=== PATIENT | male | born 1955 | race Caucasian/White ===

== ENCOUNTER 2021-04-25 06:55 | Inpatient (IN) ==
--- NOTE | 2021-04-09 16:27 | PAT Medication Instructions ---
Medication Instructions Date of Service April 09, 2021 Home Medications albuterol sulfate 90 mcg/actuation aerosol inhaler 1 - 2 inh INHALATION QID PRN amitriptyline 25 mg tablet 25 mg PO BID ascorbic acid (vitamin C) 500 mg tablet (Vitamin C) 500 mg PO BID budesonide-formoterol HFA 160 mcg-4.5 mcg/actuation aerosol inhaler (Symbicort) 2 puff INHALATION BID cholecalciferol (vitamin D3) 50 mcg (2,000 unit) tablet (Vitamin D3) 50 mcg PO QAM clopidogrel 75 mg tablet (Plavix) 75 mg PO QAM cyanocobalamin (vitamin B-12) 1,000 mcg tablet 1,000 mcg PO QAM empagliflozin 25 mg tablet (Jardiance) 25 mg PO QAM epinephrine 0.3 mg/0.3 mL injection, auto-injector 0.3 mg IM Q3H PRN esomeprazole magnesium 20 mg capsule,delayed release (Nexium) 20 mg PO BID ferrous sulfate 325 mg (65 mg iron) tablet (iron) 325 mg PO BID fluticasone propionate 50 mcg/actuation nasal spray,suspension (Flonase Allergy Relief) 2 spray INTRANASAL UD folic acid 400 mcg tablet 0.4 mg PO QAM furosemide 40 mg tablet (Lasix) 40 mg PO BID PRN lactase 3,000 unit chewable tablet (Dairy Aid) 3,000 unit PO UD loratadine 10 mg tablet 10 mg PO QAM melatonin 5 mg tablet 5 mg PO HS [id number]-niygg-thqkve-vdffqfi-zexj-nau chlor-pot chlorat nasal solution (Alkalol Nasal Wash) 1 ml INTRANASAL HS multivitamin 1 tab PO QAM nitroglycerin 0.4 mg sublingual tablet 0.4 mg BUCCAL UD PRN roflumilast 500 mcg tablet (Daliresp) 500 mcg PO QAM rosuvastatin 40 mg tablet 40 mg PO HS semaglutide (Ozempic) 1 mg SUBCUT WK sertraline 100 mg tablet 150 mg PO QAM tiotropium bromide 18 mcg capsule with inhalation device (Spiriva with HandiHaler) 1 cap INHALATION QPM triamcinolone acetonide 0.1 % topical cream 1 applic TOPICAL BID PRN Albuteral Nebulizer 1 inh INHALATION DAILY PRN Pyridoxine Otc 1 tab PO QAM acetaminophen 325 mg tablet (Tylenol) 975 mg PO QID PRN aspirin 81 mg tablet,delayed release 81 mg PO QAM carvedilol 3.125 mg tablet 3.125 mg PO BID clotrimazole 1 % topical cream 1 applic TOPICAL BID miconazole nitrate 2 % topical cream 1 applic TOPICAL BID Continue as directed epinephrine 0.3 mg/0.3 mL injection, auto-injector 0.3 mg IM Q3H PRN (if needed) fluticasone propionate 50 mcg/actuation nasal spray,suspension (Flonase Allergy Relief) 2 spray INTRANASAL UD nitroglycerin 0.4 mg sublingual tablet 0.4 mg BUCCAL UD PRN (if needed) semaglutide (Ozempic) 1 mg SUBCUT WK (just do not take on morning of surgery) ASK your prescriber and surgeon clopidogrel 75 mg tablet (Plavix) 75 mg PO QAM STOP taking 24 hours before surgery triamcinolone acetonide 0.1 % topical cream 1 applic TOPICAL BID PRN clotrimazole 1 % topical cream 1 applic TOPICAL BID miconazole nitrate 2 % topical cream 1 applic TOPICAL BID DO NOT take the morning of surgery ascorbic acid (vitamin C) 500 mg tablet (Vitamin C) 500 mg PO BID cholecalciferol (vitamin D3) 50 mcg (2,000 unit) tablet (Vitamin D3) 50 mcg PO QAM cyanocobalamin (vitamin B-12) 1,000 mcg tablet 1,000 mcg PO QAM empagliflozin 25 mg tablet (Jardiance) 25 mg PO QAM ferrous sulfate 325 mg (65 mg iron) tablet (iron) 325 mg PO BID folic acid 400 mcg tablet 0.4 mg PO QAM furosemide 40 mg tablet (Lasix) 40 mg PO BID PRN lactase 3,000 unit chewable tablet (Dairy Aid) 3,000 unit PO UD loratadine 10 mg tablet 10 mg PO QAM multivitamin 1 tab PO QAM Pyridoxine Otc 1 tab PO QAM Take morning of surgery With a small sip of water, OTHERWISE NOTHING TO EAT OR DRINK AFTER MIDNIGHT: albuterol sulfate 90 mcg/actuation aerosol inhaler 1 - 2 inh INHALATION QID PRN (use if needed; please bring with you to hospital day of surgery if possible) amitriptyline 25 mg tablet 25 mg PO BID budesonide-formoterol HFA 160 mcg-4.5 mcg/actuation aerosol inhaler (Symbicort) 2 puff INHALATION BID esomeprazole magnesium 20 mg capsule,delayed release (Nexium) 20 mg PO BID roflumilast 500 mcg tablet (Daliresp) 500 mcg PO QAM sertraline 100 mg tablet 150 mg PO QAM Albuteral Nebulizer 1 inh INHALATION DAILY PRN (if needed) acetaminophen 325 mg tablet (Tylenol) 975 mg PO QID PRN (okay to take up to 4 hours prior to surgery if needed) aspirin 81 mg tablet,delayed release 81 mg PO QAM carvedilol 3.125 mg tablet 3.125 mg PO BID Take evening before surgery albuterol sulfate 90 mcg/actuation aerosol inhaler 1 - 2 inh INHALATION QID PRN (if needed) amitriptyline 25 mg tablet 25 mg PO BID ascorbic acid (vitamin C) 500 mg tablet (Vitamin C) 500 mg PO BID budesonide-formoterol HFA 160 mcg-4.5 mcg/actuation aerosol inhaler (Symbicort) 2 puff INHALATION BID esomeprazole magnesium 20 mg capsule,delayed release (Nexium) 20 mg PO BID ferrous sulfate 325 mg (65 mg iron) tablet (iron) 325 mg PO BID furosemide 40 mg tablet (Lasix) 40 mg PO BID PRN (if needed) lactase 3,000 unit chewable tablet (Dairy Aid) 3,000 unit PO UD (if needed) melatonin 5 mg tablet 5 mg PO HS xidiato-eqhgr-kooonh-obyifwu-vhgv-cep chlor-pot chlorat nasal solution (Alkalol Nasal Wash) 1 ml INTRANASAL HS rosuvastatin 40 mg tablet 40 mg PO HS tiotropium bromide 18 mcg capsule with inhalation device (Spiriva with HandiHaler) 1 cap INHALATION QPM Albuteral Nebulizer 1 inh INHALATION DAILY PRN (if needed) acetaminophen 325 mg tablet (Tylenol) 975 mg PO QID PRN (if needed) carvedilol 3.125 mg tablet 3.125 mg PO BID Other Notes If you have any questions please call us at [phone] or [phone] or [phone] or [phone]
--- NOTE | 2021-04-12 14:12 | Anesthesiology Consultation ---
Date of Service April 12, 2021 Assessment & Plan (1) Encounter for pre-operative examination: Chart Review Chart Review: Acceptable Risk for Surgery (pending surgeon ordered PCP/cardio clearance, any available carotid, ECHO and or chest CTA studies, and preop Covid testing ) and Patient seen in Pre Admission Testing - Awaiting surgeon ordered PCP (04/16) and cardio (04/13) clearances - Will attempt to get most recent carotid study and ECHO and/or chest CTA Per [facility] appt on 04/12/21, patient denies any recent travel. Wears mask when required by CDC guidelines. Usually avoids stores. No known Covid infection in the past 90 days. Patient vaccinated for Covid. No known Covid positive contacts or Covid related symptoms. Preop Covid testing scheduled 04/23/21= will await results. Educated on importance of self quarantining, social distancing and wearing mask in public both for the patient after Covid testing done Teaching & Discussion Pre-Anesthesia Teaching/Discussion Notes: Instructed NPO after midnight before surgery,except medications with 15 cc of water. Medication instructions provided according to the [facility] guidelines. History Surgery Operation Date: 04/25/21 08:45 Proposed Procedures p Left Total Shoulder Arthroplasty, Capsular Release, Biceps Tenodesis, Manipulation Shoulder Under Anesthesia - Vito Washington MD Height/Weight Height: 5 ft 11 in Weight: 76.204 kg Allergies Allergy/AdvReac Type Severity Reaction Status Date / Time codeine Allergy Intermediate HALLUCINATE Verified 03/29/21 14:34 S glipizide Allergy Intermediate "DROPS BSG Verified 03/29/21 14:34 TOO LOW" pseudoephedrine Allergy Intermediate HEART RACES Verified 03/29/21 14:34 quinapril Allergy Intermediate DIZZINESS Verified 03/29/21 14:34 AND HEADACHES amoxicillin Allergy Mild N/V/D, Verified 03/29/21 14:34 HEADACHES, FEVER, TIREDNESS atorvastatin Allergy Mild LEG CRAMPS Verified 03/29/21 14:34 celecoxib Allergy Mild NAUSEA AND Verified 03/29/21 14:34 DIARRHEA clavulanic acid Allergy Mild N/V/D, Verified 03/29/21 14:34 HEADACHES, FEVER, TIREDNESS grape Allergy Mild ALLERGY Verified 03/29/21 14:34 TESTED guaifenesin Allergy Mild HEART RACES Verified 03/29/21 14:34 indomethacin Allergy Mild DIARRHEA Verified 03/29/21 14:34 AND TROUBLE SLEEPING niacin Allergy Mild CRAMPS, Verified 03/29/21 14:34 ITCHING TINGLING OF FACE AND NECK ramipril Allergy Mild LOW BLOOD Verified 03/29/21 14:34 PRESSURE AND DIFFICULT BREATHING metformin AdvReac Unknown NOT TO USE Verified 03/29/21 14:34 WITH OXYGEN-PER BINGO CASHIER tramadol AdvReac SEATING, Verified 03/29/21 14:34 AGITIATION, INSOMNIA, CONSTIPtion, jittery unsteady Ethanol Allergy Intermediate HEART RACES Uncoded 03/29/21 14:34 PROPULFID Allergy Intermediate STOMACH Uncoded 03/29/21 14:34 PAIN AND WEAKNESS COWS MILK Allergy Unknown ALLERGY Uncoded 03/29/21 14:34 TESTED Medications Home Medications Medication Instructions Recorded Confirmed Last Taken albuterol sulfate 90 mcg/actuation 1 - 2 inh INHALATION QID PRN 05/29/20 03/29/21 Unknown aerosol inhaler amitriptyline 25 mg tablet 25 mg PO BID 05/29/20 03/29/21 06/20/20 07:30 ascorbic acid (vitamin C) 500 mg 500 mg PO BID 05/29/20 03/29/21 06/19/20 tablet (Vitamin C) budesonide-formoterol HFA 160 2 puff INHALATION BID 05/29/20 03/29/21 06/20/20 07:30 mcg-4.5 mcg/actuation aerosol inhaler (Symbicort) cholecalciferol (vitamin D3) 50 50 mcg PO QAM 05/29/20 03/29/21 06/06/20 mcg (2,000 unit) tablet (Vitamin D3) clopidogrel 75 mg tablet (Plavix) 75 mg PO QAM 05/29/20 03/29/21 06/13/20 cyanocobalamin (vitamin B-12) 1,000 mcg PO QAM 05/29/20 03/29/21 06/19/20 1,000 mcg tablet empagliflozin 25 mg tablet 25 mg PO QAM 05/29/20 03/29/21 06/18/20 (Jardiance) epinephrine 0.3 mg/0.3 mL 0.3 mg IM Q3H PRN 05/29/20 03/29/21 Unknown injection, auto-injector esomeprazole magnesium 20 mg 20 mg PO BID 05/29/20 03/29/21 06/20/20 07:30 capsule,delayed release (Nexium) ferrous sulfate 325 mg (65 mg 325 mg PO BID 05/29/20 03/29/21 06/19/20 iron) tablet (iron) fluticasone propionate 50 2 spray INTRANASAL UD 05/29/20 03/29/21 06/20/20 07:30 mcg/actuation nasal spray,suspension (Flonase Allergy Relief) folic acid 400 mcg tablet 0.4 mg PO QAM 05/29/20 03/29/21 06/19/20 furosemide 40 mg tablet (Lasix) 40 mg PO BID PRN 05/29/20 03/29/21 Unknown lactase 3,000 unit chewable tablet 3,000 unit PO 05/29/20 03/29/21 06/19/20 (Dairy Aid) loratadine 10 mg tablet 10 mg PO QAM 05/29/20 03/29/21 06/19/20 melatonin 5 mg tablet 5 mg PO 05/29/20 03/29/21 06/19/20 ecjmkbk-gnpzt-darsjo-ysndlxa-xdqj-kpx 1 ml INTRANASAL 05/29/20 03/29/21 Unknown chlor-pot chlorat nasal solution (Alkalol Nasal Wash) multivitamin 1 tab PO QA 05/29/20 03/29/21 06/19/20 nitroglycerin 0.4 mg sublingual 0.4 mg BUCCAL UD PRN 05/29/20 03/29/21 Unknown tablet roflumilast 500 mcg tablet 500 mcg PO QA 05/29/20 03/29/21 06/20/20 07:30 (Daliresp) rosuvastatin 40 mg tablet 40 mg PO 05/29/20 03/29/21 06/19/20 semaglutide (Ozempic) 1 mg SUBCUT WK 05/29/20 03/29/21 06/18/20 sertraline 100 mg tablet 150 mg PO QA 05/29/20 03/29/21 06/20/20 07:30 tiotropium bromide 18 mcg capsule 1 cap INHALATION QPM 05/29/20 03/29/21 06/19/20 with inhalation device (Spiriva with HandiHaler) triamcinolone acetonide 0.1 % 1 applic TOPICAL BID PRN 05/29/20 03/29/21 Unknown topical cream Albuteral Nebulizer 1 inh INHALATION DAILY PRN 03/29/21 03/29/21 Unknown Pyridoxine Otc 1 tab PO QAM 03/29/21 03/29/21 Unknown acetaminophen 325 mg tablet 975 mg PO QID PRN 03/29/21 03/29/21 Unknown (Tylenol) aspirin 81 mg tablet,delayed 81 mg PO QAM 03/29/21 03/29/21 Unknown release carvedilol 3.125 mg tablet 3.125 mg PO BID 03/29/21 03/29/21 Unknown clotrimazole 1 % topical cream 1 applic TOPICAL BID 03/29/21 03/29/21 Unknown miconazole nitrate 2 % topical 1 applic TOPICAL BID 03/29/21 03/29/21 Unknown cream Past Medical History Medical History (Updated 04/12/21 @ 17:42 by Audrey Cid PA-C) A-fib Post op cath in 2013- Amio> SR per cardio records (no AC at this time) F/U DR FATIMAH DOMINGUEZ Abdominal aortic aneurysm No documentation per cardio records Anxiety and depression Asthma LAST USED RESCUE INHALER "ITS BEEN A WHILE". On 3 liters O2 with activity - breathing stable Barretts esophagus CAD (coronary artery disease) s/p CABG x 4 2013. Most recent cardiac cath 2016 showed patent grafts, 30% lesions in LM and LAD, proximally occluded LCx, chronic total occlusion of RCA. Carotid stenosis Chronic obstructive pulmonary disease 3L O2 HS and PRN SOB Diabetes mellitus, type 2 Emphysema lung Stage 3 with chronic partially collapsed lung (since 2013) GERD (gastroesophageal reflux disease) Hyperlipidemia Hypertension Lactose intolerance Liver mass BENIGN Myocardial Infarction 1994 On home oxygen therapy 3L AT HS AND PRN SOB Osteoarthritis Peripheral neuropathy Bilateral feet Restless leg syndrome Schatzki's ring Sleep apnea CPAP WITH O2 Thyroid nodule Under observation Transient ischemic attack (TIA) MULTIPLE TIMES (LAST EPISODE BEFORE 2013) STILL HAS PROBLEMS WITH MEMORY PROBLEMS (SHORT TERM MEMORY) On Plavix Exercise / Class Metabolic Activity III < 4 Walking/Shop/Light housework (no chest pain or SOB with short distance, flat surface ambulation ) Past Family History Family History Mother Family history of diabetes mellitus Past Surgical History Surgical History H/O angioplasty MCADOO 1994 History of appendectomy History of arthroscopy RT /LEFT SHOULDER History of cardiac cath MULTIPLE TIMES/NO STENTS PLACED (LAST CATH DONE/[facility] 2015) History of carpal tunnel release History of cataract surgery RT/LEFT History of cholecystectomy History of colonoscopy History of coronary artery bypass graft 2013>4 VESSELS REPAIRED History of endoscopic sinus surgery History of esophagogastroduodenoscopy (EGD) History of eye surgery FOR DETACHED RETINA-01/2021 History of tonsillectomy History of tooth extraction Hx of elbow surgery RADIAL HEAD/BONE REMOVAL LEFT SIDE Past Anesthesia History No Hx of Anesthesia Complications and No Family Hx of Anesthesia Complications Social History Smoking Status: Former smoker tobacco type: cigarettes Do You Dip or Chew Tobacco: No Smoking End Date: QUIT 2017 Hx Alcohol Use: No Hx Substance Use: No Review of Systems Patient denies chest pain, shortness of breath, dyspnea on exertion, cough, wheezing, palpitations. No hx of seizures.. No hx of blood clots or blood transfusions Physical Exam Vital Signs VITALS BP 96/58 (manual/asymptomatic- pt will follow up with cardio- will also do home readings) P 71 TEMP 98.4 SP02 95% (on 3 liters of O2) RESP 16 Constitutional no acute distress ENMT Mouth: no TMJ clicking Thyromental Distance: > or= 3.5 Finger Breadths (3.5) Mallampati Class: II (smaller airway ) Full dentures on top and bottom Neck + limited neck extension (mild ) Respiratory normal respiratory effort; no respiratory distress Auscultation: lungs clear to auscultation bilaterally and + diminished lung sounds (generalized throughout ); no wheezes Cardiovascular Rate/Rhythm: regular rate and regular rhythm Heart Sounds: no murmur Vessels: no carotid bruit Musculoskeletal Spine: no pain with cervical ROM Extremities: extremities normal to inspection Psychiatric Orientation: alert Lab Results Anesthesia Preop Results Results Anesthesia Widget: WBC 7.58 K/uL (4.8-10.8) 04/12/21 Hgb 14.9 g/dL (14.0-18.0) 04/12/21 Hct 44.5 % (42-52) 04/12/21 Plt 155 K/uL (130-400) 04/12/21 Na 143 mmol/L (136-145) 04/12/21 K 4.0 mmol/L (3.5-5.1) 04/12/21 Cl 111 mmol/L (98-107) H 04/12/21 CO2 27 mmol/L (21-32) 04/12/21 BUN 10 mg/dl (7-18) 04/12/21 Creat 0.83 mg/dl (0.6-1.4) 04/12/21 Glucose Level 96 mg/dl (70-99) 04/12/21 PT 10.3 Seconds (9.0-12.0) 04/12/21 PTT 24.0 Seconds (21.0-31.0) 04/12/21 INR 1.0 (0.9-1.1) 04/12/21 HA1c 5.8 % (4.5-5.6) H 04/12/21 Urine Color Dark Yellow 04/12/21 Urine Appearance Clear (Clear) 04/12/21 Urine pH 5.5 (4.5-7.5) 04/12/21 Urine Specific [place] > 1.045 (1.000-1.030) H 04/12/21 Urine Protein Negative (Negative) 04/12/21 Urine Glucose (UA) 2+ (Negative) H 04/12/21 Urine Ketones Trace (Negative) H 04/12/21 Urine Blood Negative (Negative) 04/12/21 Urine Nitrite Negative (Negative) 04/12/21 Urine Bilirubin Negative (Negative) 04/12/21 Urine Urobilinogen Negative (Negative) 04/12/21 Urine Leukocyte Esterase Negative (Negative) 04/12/21 Blood Type O Positive 04/12/21 Antibody Screen NEGATIVE 04/12/21 Testing Electrocardiogram Date: 04/12/21 Findings: + NSR @ (63 bpm) Inferior infarct, age undetermined (inferior infarct noted on 06/29/19 EKG) Nonspecific T wave abnormality Chest X-Ray Date: 04/12/21 Findings: + NAD Emphysematous change with no active disease in the chest. Cardiac Catheterization Date: 05/23/16 Right dominant system. 30% lesion in the distal LM. 30% lesion in the proximal LAD, calcified. The LCx is occluded proximally. The RCA is totally chronically occluded in the ostium. There is patent SVG to first diagonal. There is patent SVG to second obtuse marginal. The SVG to RPDA is patent. Recommendations: Continue risk factor modification. Evaluate for other causes of BURNETT.
--- NOTE | 2021-04-22 19:12 | History & Physical Report ---
Date of Service April 22, 2021 Assessment & Plan (1) Primary osteoarthritis, left shoulder: Plan: Treatment options discussed with patient. He has continued pain in shoulder despite arthroscopy. He has failed conservative measures. He has considerable stiffness as well as significant osteoarthritis left shoulder. He would like to proceed with surgical intervention. Risks, benefits and alternatives to surgery including but not limited to infection, DVT, pain, stiffness, need for revision surgery, damage to blood vessels, damage to nerves, PE, , were discussed with the patient and they wish to proceed. Plan on left total shoulder arthroplasty, capsular release, biceps tendesis, manipulation under anesthesia. Surgery scheduled for 04/25/21 at [facility]. Will plan on OPPT vs HHPT post discharge. All questions answered. History of Present Illness Chief Complaint: Left shoulder pain Primary Care Provider: Hank Ulrich MD 65 year old male with PMHx significant for HTH, high cholesterol, emphysema, hx of ID, CAD s/p CABG, DM2, afib, RUTHANN, AAA, TIA, and GERD who presents with ongoing left shoulder pain. Had arthrscopy last year and is having continued pain interfering with his daily activities. Has failed conservative measures including therapy and injections. He would like to proceed with arthroplasty. Patient denies headaches, sweats, fevers, chills, double vision, blurred vision, cough, sore throat, dysphagia, chest pain, sob, wheezing, n/v/d/c, numbness, tingling, fatigue, urinary symptoms, mood disorders. ROS positive for left shoulder pain and stiffness. Allergies Allergy/AdvReac Type Severity Reaction Status Date / Time codeine Allergy Intermediate HALLUCINATE Verified 03/29/21 14:34 S glipizide Allergy Intermediate "DROPS BSG Verified 03/29/21 14:34 TOO LOW" pseudoephedrine Allergy Intermediate HEART RACES Verified 03/29/21 14:34 quinapril Allergy Intermediate DIZZINESS Verified 03/29/21 14:34 AND HEADACHES amoxicillin Allergy Mild N/V/D, Verified 03/29/21 14:34 HEADACHES, FEVER, TIREDNESS atorvastatin Allergy Mild LEG CRAMPS Verified 03/29/21 14:34 celecoxib Allergy Mild NAUSEA AND Verified 03/29/21 14:34 DIARRHEA clavulanic acid Allergy Mild N/V/D, Verified 03/29/21 14:34 HEADACHES, FEVER, TIREDNESS grape Allergy Mild ALLERGY Verified 03/29/21 14:34 TESTED guaifenesin Allergy Mild HEART RACES Verified 03/29/21 14:34 indomethacin Allergy Mild DIARRHEA Verified 03/29/21 14:34 AND TROUBLE SLEEPING niacin Allergy Mild CRAMPS, Verified 03/29/21 14:34 ITCHING TINGLING OF FACE AND NECK ramipril Allergy Mild LOW BLOOD Verified 03/29/21 14:34 PRESSURE AND DIFFICULT BREATHING metformin AdvReac Unknown NOT TO USE Verified 03/29/21 14:34 WITH OXYGEN-PER 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 tramadol AdvReac SEATING, Verified 03/29/21 14:34 AGITIATION, INSOMNIA, CONSTIPtion, jittery unsteady Ethanol Allergy Intermediate HEART RACES Uncoded 03/29/21 14:34 PROPULFID Allergy Intermediate STOMACH Uncoded 03/29/21 14:34 PAIN AND WEAKNESS COWS MILK Allergy Unknown ALLERGY Uncoded 03/29/21 14:34 TESTED Home Medications Medication Instructions Recorded Confirmed Type albuterol sulfate 90 mcg/actuation 1 - 2 inh INHALATION QID PRN 05/29/20 03/29/21 History aerosol inhaler amitriptyline 25 mg tablet 25 mg PO BID 05/29/20 03/29/21 History ascorbic acid (vitamin C) 500 mg 500 mg PO BID 05/29/20 03/29/21 History tablet (Vitamin C) budesonide-formoterol HFA 160 2 puff INHALATION BID 05/29/20 03/29/21 History mcg-4.5 mcg/actuation aerosol inhaler (Symbicort) cholecalciferol (vitamin D3) 50 50 mcg PO QAM 05/29/20 03/29/21 History mcg (2,000 unit) tablet (Vitamin D3) clopidogrel 75 mg tablet (Plavix) 75 mg PO QAM 05/29/20 03/29/21 History cyanocobalamin (vitamin B-12) 1,000 mcg PO QAM 05/29/20 03/29/21 History 1,000 mcg tablet empagliflozin 25 mg tablet 25 mg PO QAM 05/29/20 03/29/21 History (Jardiance) epinephrine 0.3 mg/0.3 mL 0.3 mg IM Q3H PRN 05/29/20 03/29/21 History injection, auto-injector esomeprazole magnesium 20 mg 20 mg PO BID 05/29/20 03/29/21 History capsule,delayed release (Nexium) ferrous sulfate 325 mg (65 mg 325 mg PO BID 05/29/20 03/29/21 History iron) tablet (iron) fluticasone propionate 50 2 spray INTRANASAL UD 05/29/20 03/29/21 History mcg/actuation nasal spray,suspension (Flonase Allergy Relief) folic acid 400 mcg tablet 0.4 mg PO QAM 05/29/20 03/29/21 History furosemide 40 mg tablet (Lasix) 40 mg PO BID PRN 05/29/20 03/29/21 History lactase 3,000 unit chewable tablet 3,000 unit PO UD 05/29/20 03/29/21 History (Dairy Aid) loratadine 10 mg tablet 10 mg PO QAM 05/29/20 03/29/21 History melatonin 5 mg tablet 5 mg PO HS 05/29/20 03/29/21 History mlgcxem-eofve-zpzyyp-tqsunka-yrgz-csc 1 ml INTRANASAL HS 05/29/20 03/29/21 History chlor-pot chlorat nasal solution (Alkalol Nasal Wash) multivitamin 1 tab PO QAM 05/29/20 03/29/21 History nitroglycerin 0.4 mg sublingual 0.4 mg BUCCAL UD PRN 05/29/20 03/29/21 History tablet roflumilast 500 mcg tablet 500 mcg PO QAM 05/29/20 03/29/21 History (Daliresp) rosuvastatin 40 mg tablet 40 mg PO HS 05/29/20 03/29/21 History semaglutide (Ozempic) 1 mg SUBCUT WK 05/29/20 03/29/21 History sertraline 100 mg tablet 150 mg PO QAM 05/29/20 03/29/21 History tiotropium bromide 18 mcg capsule 1 cap INHALATION QPM 05/29/20 03/29/21 History with inhalation device (Spiriva with HandiHaler) triamcinolone acetonide 0.1 % 1 applic TOPICAL BID PRN 05/29/20 03/29/21 History topical cream Albuteral Nebulizer 1 inh INHALATION DAILY PRN 03/29/21 03/29/21 History Pyridoxine Otc 1 tab PO QAM 03/29/21 03/29/21 History acetaminophen 325 mg tablet 975 mg PO QID PRN 03/29/21 03/29/21 History (Tylenol) aspirin 81 mg tablet,delayed 81 mg PO QAM 03/29/21 03/29/21 History release carvedilol 3.125 mg tablet 3.125 mg PO BID 03/29/21 03/29/21 History clotrimazole 1 % topical cream 1 applic TOPICAL BID 03/29/21 03/29/21 History miconazole nitrate 2 % topical 1 applic TOPICAL BID 03/29/21 03/29/21 History cream Past Med/Surg History Medical History (Updated 04/22/21 @ 19:14 by Fred Marino) A-fib Post op cath in 2013- Amio> SR per cardio records (no AC at this time) F/U DR FATIMAH DOMINGUEZ Abdominal aortic aneurysm No documentation per cardio records Anxiety and depression Asthma LAST USED RESCUE INHALER "ITS BEEN A WHILE". On 3 liters O2 with activity - breathing stable Barretts esophagus CAD (coronary artery disease) s/p CABG x 4 2013. Most recent cardiac cath 2015 showed patent grafts, 30% lesions in LM and LAD, proximally occluded LCx, chronic total occlusion of RCA. Carotid stenosis Chronic obstructive pulmonary disease 3L O2 HS and PRN SOB Diabetes mellitus, type 2 Emphysema lung Stage 3 with chronic partially collapsed lung (since 2013) GERD (gastroesophageal reflux disease) Hyperlipidemia Hypertension Lactose intolerance Liver mass BENIGN Myocardial Infarction 1994 On home oxygen therapy 3L AT HS AND PRN SOB Osteoarthritis Peripheral neuropathy Bilateral feet Restless leg syndrome Schatzki's ring Sleep apnea CPAP WITH O2 Thyroid nodule Under observation Transient ischemic attack (TIA) MULTIPLE TIMES (LAST EPISODE BEFORE 2013) STILL HAS PROBLEMS WITH MEMORY PROBLEMS (SHORT TERM MEMORY) On Plavix Surgical History H/O angioplasty [place] 1994 History of appendectomy History of arthroscopy RT /LEFT SHOULDER History of cardiac cath MULTIPLE TIMES/NO STENTS PLACED (LAST CATH DONE/[facility] [place] 2016) History of carpal tunnel release History of cataract surgery RT/LEFT History of cholecystectomy History of colonoscopy History of coronary artery bypass graft 2013>4 VESSELS REPAIRED History of endoscopic sinus surgery History of esophagogastroduodenoscopy (EGD) History of eye surgery FOR [facility]-01/2021 History of tonsillectomy History of tooth extraction Hx of elbow surgery RADIAL HEAD/BONE REMOVAL LEFT SIDE Family History Mother Family history of diabetes mellitus Social History (Updated 03/29/21 @ 15:09 by Surekha Vuong RN) Smoking Status: Former smoker Second Hand Exposure: No; Hx Alcohol Use: No Hx Substance Use: No Preferred Language: Pashto Communication Ability: Effective 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 Required: No Beliefs That Will Affect Care: None Current Living Situation: Spouse current occupational status: disabled Feels Safe at Home: Yes Assistive Devices: Cane, Denture - Upper, Denture - Lower, Glasses, Hearing Aid - Bilateral and Walker Review of Systems All systems reviewed & are unremarkable except as noted in HPI & below Physical Exam Constitutional: well developed and well nourished; no acute distress Eyes: PERRL, conjunctivae normal, anicteric sclerae ENMT: external ear and nose normal, oropharynx normal Neck: trachea midline, no thyromegaly Respiratory: normal respiratory effort, lungs clear to auscultation (lung sounds mildly diminished) Cardiovascular: RRR, no murmur, no edema Musculoskeletal: Left shoulder: Diffuse tenderness. Positive Impingement signs. Painful ROM in all directions. ER to 40 degrees, FF to 80 degrees, abduction to 60 degrees. Normal strength. Skin: no rashes, warm and dry Neurologic: patellar DTR's 2+ bilat, sensation intact Psychiatric: A+Ox3, euthymic affect Results & Data ([place]) Diagnostic Findings Left shoulder radiographs demonstrate significant joint space narrowing with osteophyte formation GH joint. Osteophyte inferior humeral head. Left shoulder MRI demonstrates intact rotator cuff with rotator cuff tendinopathy, moderate to severe GH joint degenerative changes
[~2021-04-25 06:55] MED LIST: ACETAMINOPHEN 500 MG TAB PO SCH; BUPIVACAINE 0.5 % 5 MG/1 ML PF 10ML VIAL ONE; FAMOTIDINE 20 MG TAB PO SCH; GABAPENTIN 300 MG CAP PO SCH; LR 15ML/HR IV SCH; METOCLOPRAMIDE HCL 10 MG TABLET PO SCH; TRANEXAMIC ACID 1,000 MG **IV Pre-op IV SCH; ceFAZolin 1000MG 1,000 MG/7.5 ML SYR IV SCH
[2021-04-25] MEDS ORDERED: MIDAZOLAM HCL 1 MG/ML 2ML VIAL ONE (08:29)
[2021-04-25] MEDS ORDERED: fentaNYL citrate 100 MCG/2 ML VIAL ONE (08:29)
[2021-04-25] MEDS ORDERED: ONDANSETRON INJ 2 MG/ML 2 ML VIAL ONE (08:33)
[2021-04-25] MEDS ORDERED: DEXAMETHASONE SOD INJ 4 MG/ML VIAL ONE (08:33)
[2021-04-25] MEDS ORDERED: LIDOCAINE 2% 2 ML VIAL/AMP(20MG/ML) INFIL ONE (08:34)
[2021-04-25] MEDS ORDERED: PROPOFOL IV EMULSION 10 MG/ML 20 ML VIAL IV ONE (08:34)
[2021-04-25] MEDS ORDERED: ROCURONIUM BROMIDE 10 MG/ML 5 ML VIAL IV ONE (08:37)
[2021-04-25] MEDS ORDERED: LARYING-O-JET KIT (LTA) ONE (08:54)
[2021-04-25] MEDS ORDERED: KETOROLAC 30 MG/ML VIAL IV PRN (09:17)
[2021-04-25] MEDS ORDERED: fentaNYL citrate 100 MCG/2 ML VIAL IV PRN (09:17)
[2021-04-25] MEDS ORDERED: ONDANSETRON INJ 2 MG/ML 2 ML VIAL IV PRN ×2 (09:17→16:00)
[2021-04-25] MEDS ORDERED: ATROPINE SULFATE 0.1 MG/ML 10ML SYR IV PRN (09:17)
[2021-04-25] MEDS: TRANEXAMIC ACID 1,000 MG **IV Intra-op IV SCH ×2 (09:32→13:23)
--- NOTE | 2021-04-25 09:33 | History & Physical Bridge Note ---
Date of Service April 25, 2021 History & Physical Bridge Note I have examined the patient, reviewed the History & Physical and in the interval since the performance of the History & Physical I have noted the following changes of clinical significance: no changes noted
[2021-04-25] MEDS ORDERED: EPINEPHrine HCL INJ 1 MG/ML 30ML ONE (09:51)
[2021-04-25] MEDS ORDERED: PHENYLEPHRINE 100MCG/ML 5ML SYR ONE (11:50)
[2021-04-25] MEDS ORDERED: PHENYLEPHRINE HCL 10 MG/ML VIAL ONE (11:50)
[2021-04-25] MEDS ORDERED: ePHEDrine sulfate 50 MG/ML SYR ONE (11:50)
[2021-04-25] MEDS ORDERED: ePHEDrine sulfate 50 MG/ML AMP ONE (11:50)
[2021-04-25] MEDS ORDERED: CALCIUM CHLORIDE 10% 10 ML SYR IV ONE (12:00)
--- NOTE | 2021-04-25 13:34 | Post Operative Brief Note ---
Immediate Post Op Note v1 Date of Surgery April 25, 2021 Pre & Post Diagnosis Operation Date: 04/25/21 09:25 Pre-Op Diagnosis: Left Shoulder Osteoarthritis, Adhesive Capsulitis, status post prior arthroscopic shoulder surgery Post-Op Diagnosis: Left Shoulder Osteoarthritis, Adhesive Capsulitis, status post arthroscopic shoulder surgery I identified the patient and participated in the time-out.: Yes Procedure Operation Date: 04/25/21 09:25 Actual Procedures p Left Total Shoulder Arthroplasty, Capsular Release, Biceps Tenodesis, Manipulation Shoulder Under Anesthesia(Left) - Vito Washington MD Surgeon Vito Washington MD Railroad Carman Hector LOVE Estimated Blood Loss 50 Findings Consistent with Post-Op Diagnosis Specimens Humeral head Drains Hemovac Drain (1/8" (3.2mm, 10fr)) Anesthesia Type General Regional Complications Partial glenoid fracture Disposition Accompanied Patient To Recovery: No Overlapping Procedure I was present for: the critical portions of procedure. Back up surgeon: was not required during procedure.
--- NOTE | 2021-04-25 14:30 | XRay Report ---
XR shoulder LT min 2V routine HISTORY: 65 years-old Male Post shoulder surgery left shoulder total joint arthroplasty COMPARISON: Chest radiographs 04/12/2021 TECHNIQUE: 2 views of the left shoulder FINDINGS: Left shoulder arthroplasty. Overlying skin dari are present along with expected postoperative soft tissue swelling with surgical drainage catheter. No acute fracture or unexpected opaque foreign body . No malalignment. Moderate AC joint degeneration. IMPRESSION: Left shoulder arthroplasty with expected postoperative changes. ACT 112: Negative or not required by law. The above report was generated using voice recognition software. It may contain grammatical, syntax o r spelling errors. Electronically signed by: Maciej Govea M.D. 04/25/2021 2:29 PM
--- NOTE | 2021-04-25 15:07 | Anesthesiology Progress Note ---
Date of Service April 25, 2021 Anesthesia Post Procedure Vital Signs Vital Signs: Temp Pulse Pulse Resp BP Pulse Ox 04/25/21 14:45 36.9 C 74 17 97/56 L 96 04/25/21 14:35 37.2 C 74 20 96/52 L 95 04/25/21 14:25 83 17 91/55 L 94 04/25/21 14:15 74 15 101/56 L 96 04/25/21 14:05 76 22 103/59 L 95 04/25/21 13:55 74 21 101/60 96 04/25/21 13:46 37 C 76 16 119/66 97 04/25/21 07:20 36.6 C 69 20 117/69 98 Transfer of Care Handoff Completed per policy Notes Mental Status: alert / awake / arousable Patient Amnestic to Procedure: Yes Nausea / Vomiting: adequately controlled Pain: adequately controlled Airway Patency, RR, SpO2: stable & adequate BP & HR: stable & adequate Hydration State: stable & adequate Anesthetic Complications: no major complications apparent
[2021-04-25] MEDS ORDERED: METOCLOPRAMIDE HCL INJ 5 MG/ML 2 ML VIAL IV PRN (16:00)
[2021-04-25] MEDS ORDERED: TAMSULOSIN HCL 0.4 MG CAP PO PRN (16:00)
[2021-04-25] MEDS ORDERED: NALOXONE HCL 0.4 MG/1 ML VIAL/CARP IV PRN (16:00)
[2021-04-25] MEDS ORDERED: HYDROmorphone INJ 0.5 MG/0.5 ML SYR IV PRN (16:00)
[2021-04-25] MEDS ORDERED: PHARMACY GLYCEMIC MGMT CONSULT PRN (16:00)
[2021-04-25] MEDS ORDERED: TRIAMCINOLONE ACET 0.1% CR 15 GM TUBE TOP PRN (16:00)
[2021-04-25] MEDS ORDERED: NITROGLYCERIN SL 0.4 MG/TAB TAB SL PRN (16:00)
[2021-04-25] MEDS ORDERED: FUROSEMIDE 40 MG TAB PO PRN (16:00)
[2021-04-25] MEDS ORDERED: ALBUTEROL HFA 8 GM INHALER INH PRN (16:00)
[2021-04-25] MEDS ORDERED: bisacodyL 10 MG SUPP PR PRN (16:00)
[2021-04-25] MEDS ORDERED: MAGNESIUM HYDROXIDE SUSP 30 ML UDC PO PRN (16:00)
[2021-04-25] MEDS ORDERED: EPINEPHrine ADULT AUTO-INJECT 0.3 MG SYR IM PRN (16:00)
[2021-04-25] MEDS ORDERED: CARBOHYDRATES FOR HYPOGLYCEMIA PO PRN (16:30)
[2021-04-25] MEDS ORDERED: GLUCOSE 40% GEL 15 GM TUBE PO PRN (16:30)
[2021-04-25] MEDS ORDERED: GLUCAGON FOR INJ 1 MG VIAL IM PRN (16:30)
[2021-04-25] MEDS ORDERED: MELATONIN 3 MG TAB PO PRN (16:30)
[2021-04-25] MEDS ORDERED: LACTASE 3000 UNIT TAB PO PRN (16:30)
[2021-04-25] MEDS ORDERED: GLUCOSE 10 TABS/TUBE PO PRN (16:30)
[2021-04-25] MEDS ORDERED: DEXTROSE 50% 50 ML SYRINGE IV PRN (16:30)
[2021-04-25] MEDS ORDERED: MICONAZOLE NITRATE 2% CR 30 GM TUBE EXT PRN (16:31)
[2021-04-25] MEDS ORDERED: ALBUTEROL 0.083% NEBU SOLN 3 ML VIAL INH PRN (16:39)
--- NOTE | 2021-04-25 17:24 | Pharmacy Report ---
Pharmacy Glycemic Short Note 2 - Date of Service April 25, 2021 - Glycemic Short BSG Results (Last 24 hours): 04/25/21 04/25/21 07:32 17:11 POC Glucose 115 H 126 H OUTPATIENT ANTIDIABETIC REGIMEN: * Jardiance 25mg PO QAM * Ozempic 1mg SQ weekly * A1c = 5.8% on 04/12/21 ASSESSMENT: * 65yo T2DM male with excellent outpatient control per recent A1c * Pt is maintained on oral antidiabetic agents + GLP1 as an outpatient * Oral agents/non-insulin SQ agents are not recommended for inpatient use d/t drug interactions, changing PO intake, and difficulty titrating for acute hyper/hypoglycemia. ADA recommends re-initiating outpatient oral agents 1-2 days prior to discharge if/when appropriate if they were held on admission. * Will hold oral agents for admission and utilize SQ basal bolus insulin regimen which is the recommended regimen for inpatient glycemic control. * Will initiate weight based insulin dosing for insulin fiona patient and titrate based on BSG trends. * Post OP BSGs < 150 therefore will HOLD basal insulin despite dexamethasone given intraoperative. Will start low dose NPH if BSG > 180 PLAN FOR INPATIENT GLYCEMIC CONTROL: * Hold outpatient diabetes medications * Basal insulin * Hold for now; will start low dose basal if BSG > 180 * Bolus insulin * NovoLog per scale ACHS or Q6hrs while NPO * Goal Range: Low 110 mg/dL - High 140 mg/dL * Correction Factor: 20 mg/dL/unit * Nutritional / Prandial insulin per carb ratio of 1 unit per 7 grams CHO consumed PLAN FOR DISCHARGE: * A1c is in goal range; no changes needed at DC
--- NOTE | 2021-04-25 17:32 | Operative Report ---
Post Operative Report Pre & Post Diagnosis Operation Date: 04/25/21 09:25 Pre-Op Diagnosis: Left Shoulder end-stage glenohumeral osteoarthritis with adhesive capsulitis biceps tenosynovitis status post shoulder arthroscopy. Post-Op Diagnosis: Left shoulder end-stage glenohumeral osteoarthritis please capsulitis biceps tenosynovitis status post shoulder arthroscopy I identified the patient and participated in the time-out.: Yes Procedure Operation Date: 04/25/21 09:25 Actual Procedures p Left Total Shoulder Arthroplasty, Capsular Release, Biceps Tenodesis.(Left) - Vito Washington MD Surgeon Vito Washington MD Tutor Hector LOVE Estimated Blood Loss 50 Findings Consistent with Post-Op Diagnosis Specimens Humeral head Drains 2 Hemovac Anesthesia Type General Regional Complications Posterior rim fracture glenoid Indications 65-year-old male who has chronic left shoulder pain and stiffness. History of shoulder arthroscopy year ago but had very limited success with physical therapy and getting motion back and it was felt that due to his severe osteoarthritis in the shoulder that he had too much pain to go through physical therapy to regain motion and developed adhesive capsulitis and extremely stiff painful shoulder which is failed all conservative management. MRI demonstrates rotator cuff is intact he has biceps tenosynovitis he has severe glenohumeral osteoarthritis grade 4 osteoarthritis. This was also noted at time of arthroscopic surgery by the surgeon. Description of Procedure The patient was taken to the operating room and anesthetized under a general and regional block anesthesia. A towel roll was placed under the medial border of the scapula of the left shoulder. The patient's head was placed on a foam headr est and protective eyewear was placed and the extremities were well padded. The arm was draped free in order to manipulate the shoulder as necessary. The shoulder exam demonstrated very limited range of motion with forward flexion only to 60 degrees and abduction to 45 degrees and essentially no internal or external rotation past neutral. The shoulder was sterilely prepped and draped in the usual sterile fashion. An anterior deltopectoral approach was performed. A longitudinal incision was made in the interval. The skin was incised sharply and subcutaneous tissues dissected down to the fascia. There was no cephalic vein identified. Several crossing veins were tied off with silk ties and divided. The scarred clavipectoral fascia was divided at the lateral margin of the conjoined tendon and divided up to the level of the coracoacromial ligament which was preserved. The upper 1 cm of the pectoralis was released for inferior exposure. The biceps tendon findings demonstrated chronic tenosynovitis. The rotator cuff tendon findings demonstrated scarred rotator interval area consistent with adhesive capsulitis intact rotator cuff tissue. Some subdeltoid scar adhesions. All the subdeltoid adhesions and scarred bursal tissue was resected the coracohumeral ligament was released. The subacromial scarred bursa was resected. After these releases there was some improved range of motion all ready but still stiff shoulder. The circumflex vessels were identified and tied off with silk ties and divided laterally. The fibers and subscapularis were split longitudinally at the level of the circumflex vessels down to the capsule and then reflected off the inferior capsule using a Kitner elevator. The axillary nerve was identified with a tug test and protected with a blunt Zack retractor. The thickened rotator interval was opened up and extended down to the glenoid. The biceps tendon was identified and tenodesed to the pectoralis tendon with [id number] #2 FiberWire sutures and the proximal biceps was resected. The subscapularis tendon was taken down with a trans-tendinous incision leaving a cuff of tissue for repair on the lesser tuberosity. The incision was carried down to the tendon and the capsule and a #1 Vicryl suture was placed into the free end of the subscapularis tendon. The capsule was subperiosteally dissected off the inferior neck of the humerus exposing the humeral osteophytes which demonstrated moderately large osteophytes from anterior to posterior.. The osteophytes were excised with an artist chisel and a rongeur. The capsular release along the inferior neck of the humerus was completed. The humerus was then retracted posterior to the glenoid with a Fukuda retractor. The remainder of the biceps tendon and labrum was resected. The glenoid findings demonstrated grade 4 osteoarthritis of the glenoid and the central posterior area of the glenoid.. I did an anterior inferior and capsular release inferior release with electrocautery on bone and a Pastor elevator with the axillary nerve continuing to be protected with the blunt Hohmann retractor inferiorly. A direct posterior capsular release was performed as well to fully released posterior capsule to improve the internal rotation. With the axillary nerve identified and retracted inferiorly with a Hohmann retractor the thickened anterior capsule was then released down to the glenoid under direct visualization. This was then released off the anterior glenoid to meet the rotator interval incision so that a 360 degree release of the subscapularis was performed. Traction was placed on subscapularis to assure that it was fully freed up on both sides of the muscle and tendon. Posterior inferiorly there was large osteophyte that was inhibiting placing a retractor around posterior glenoid so we did use small artist chisel to resect the osteophyte off the glenoid. When the releases were completed and the humeral head was exposed with some extension and external rotation and in anatomic head cut was made using the oscillating saw. The Tornier ascend flex PTC total shoulder arthroplasty was used including the perform glenoid component. Attention was first taken to preparation of the humeral shaft. A centralizing awl was used followed by broaches up to the appropriate templated size 7. The trial broach was left in place and a cut protector was placed. The humerus was then retracted posterior to the glenoid using a Bankart retractor anteriorly and blunt Zack and posterior Tornier glenoid retractor. A central drill hole was made into the glenoid. The glenoid was sized for a size large component. The glenoid was reamed. During the reaming was noted that the posterior glenoid retractor pressed against the inferior rim of the glenoid causing a small pie shaped corner of the glenoid to be fractured off. This was located in the posterior inferior aspect and was not large enough to compromise any of the glenoid fixation. the central drill hole was widened and the guide for the 3 peripheral peg holes was placed in the peg holes were drilled and a trial component was placed with a tight fit. The trial was removed and the glenoid was irrigated with pulsatile lavage saline solution and the drill holes were dried and packed with epinephrine-soaked tampons for hemostasis. The Palacos G cement was vacuum mixed. The final component the large 40 Cortiloc perform glenoid component was cemented into position and held in position with pressure until the cement cured. A humeral head trial was placed. A trial reduction was performed and the shoulder was stable. The trial was removed and the humerus and canal were irrigated with antibiotic solution with bacitracin. 3 drill holes were made into the hard bone in the bicipital groove lateral to the lesser tuberosity and 3 #5 FiberWire transosseous sutures were placed for repair of the subscapularis. After further irrigation of the canal and the final components were assembled. The final components were the 52 x 23 high offset humeral head assembled to the 7C standard PTC stem. The implant was then impacted into the humerus with a tight press-fit. The humerus was reduced to the glenoid and stability verified. The subscapularis was repaired with the #5 FiberWire sutures in a Orlando-Brian suture technique and lateral row fixation with [id number] #2 FiberWire in the soft tissue. The rotator interval was closed laterally and maximal external rotation. The pectoralis was then closed with [id number] #2 FiberWire suture. The sutures were passed through the biceps tendon as well to reinforce the biceps tenodesis. Shoulder was taken through range of motion and the range of motion was stable through 120 degrees of flexion 90 degrees of abduction external rotation of 40 degrees and internal rotation of 60 degrees. 2 Hemovac drains were placed. The deltopectoral interval was closed with [id number] #1 Vicryl sutures. The subcutaneous tissues were closed with interrupted 2-0 Vicryl and the skin was closed with dari and a sterile dressing was applied. The patient tolerated the procedure well. Hector LOVE my physician land surveyor assistant, assisted in soft tissue retraction instrument management suture management and assisted in the subcutaneous and skin closure and will participate in the postoperative care the patient. I attest to the content of the Intraoperative Record and any orders documented therein. Any exceptions are noted below.
--- NOTE | 2021-04-25 17:43 | Hospitalist Consultation ---
Date of Consultation April 25, 2021 Assessment & Plan (1) CAD (coronary artery disease): - H/O IL and CABG - currently stable; no recent chest pain issues or angina - Continue ASA 81 mg daily; Plavix 75 mg daily; Coreg 3.125 mg BID; Rosuvastatin 40 mg HS (2) Chronic obstructive pulmonary disease: - STABLE - no recent exacerbations and no wheezing/bronchospasm on assessment; utilizes supplemental O2 on exertion (3L) and at night sometimes instead of CPAP - Albuteral PRN; Continue home inhaler regimen (3) Diabetes mellitus, type 2: - Hold home regimen and appreciate glycemic management - Continue amitriptyline 25 mg BID for diabetic neuropathy (4) Hypertension: - STABLE - Some BPs in 90s systolic but similar readings on previous admission; patient is A&O and no dizziness - Continue home regimen (5) A-fib: - Appears this is a remote history post-operatively in the past; not requiring AC - Examines in NSR currently - no palpitations/flutters, dizziness, or issues (6) Sleep apnea: - Utilizes CPAP at home and sometimes just 3 L NC - patient prefers to utilize supplemental O2 while hospitalized - Can order CPAP if he would change his mind (7) Hyperlipidemia: - Continue statin therapy (8) GERD (gastroesophageal reflux disease): - Continue Protonix 40 mg BID as interchange (9) Primary osteoarthritis, left shoulder: - S/P Total Shoulder Arthroplasty on 25 April - Pain management, bowel regimen, DVT prophylaxis, PT/OT, surgical management per primary team Disposition: - Medically stable at this time; will assess AM labs and monitor status - Hospitalist team will continue to follow Supervising Physician Co-Signing Physician Notes Patient seen and examined with Tammy Muñiz PA-C. I agree with her exam findings, review of systems, assessment and plan. I personally reviewed the lab work and imaging as well. patient doing well post op check labs in the AM - s/p TSA 04/25: pain control, PT/OT and d/c planning per ortho - CAD, HTN, DM type II, COPD, atrial fibrillation vitals stable continue antiplatelets lungs are clear and breathing stable check routine labs in AM will continue to follow at this time History of Present Illness Reason for Consultation: Medical Management Attending Physician: Vito Washington MD History of Present Illness Mr. Alston is a 65 y/o male with PMHx of CAD with IL S/P CABG, Emphysema, T2DM, PAF (post-operatively), HTN, HLD, GERD, AAA, TIAs, RUTHANN on CPAP/O2 who is S/P L shoulder arthroplasty and capsular release on 25 April. Pt is doing well post-operatively. Reporting no pain at the current time and eating dinner without issue. He was cleared by his PCP, cardiology, pulmonology prior to surgery. He reports no acute issues. He does utilize supplemental O2 at 3 L with exertion and to sleep. He does have a CPAP but states the O2 seems to help him better and would like to just use that during admission. He has not had a recent emphysema exacerbation requiring steroids or increased use of inhalers. He denies any recent chest pain. Allergies Allergy/AdvReac Type Severity Reaction Status Date / Time codeine Allergy Intermediate HALLUCINATE Verified 04/25/21 07:38 S glipizide Allergy Intermediate "DROPS BSG Verified 04/25/21 07:38 TOO LOW" pseudoephedrine Allergy Intermediate HEART RACES Verified 04/25/21 07:38 quinapril Allergy Intermediate DIZZINESS Verified 04/25/21 07:38 AND HEADACHES amoxicillin Allergy Mild N/V/D, Verified 04/25/21 07:38 HEADACHES, FEVER, TIREDNESS atorvastatin Allergy Mild LEG CRAMPS Verified 04/25/21 07:38 celecoxib Allergy Mild NAUSEA AND Verified 04/25/21 07:38 DIARRHEA clavulanic acid Allergy Mild N/V/D, Verified 04/25/21 07:38 HEADACHES, FEVER, TIREDNESS grape Allergy Mild ALLERGY Verified 04/25/21 07:38 TESTED guaifenesin Allergy Mild HEART RACES Verified 04/25/21 07:38 indomethacin Allergy Mild DIARRHEA Verified 04/25/21 07:38 AND TROUBLE SLEEPING niacin Allergy Mild CRAMPS, Verified 04/25/21 07:38 ITCHING TINGLING OF FACE AND NECK ramipril Allergy Mild LOW BLOOD Verified 04/25/21 07:38 PRESSURE AND DIFFICULT BREATHING metformin AdvReac Unknown NOT TO USE Verified 04/25/21 07:38 WITH OXYGEN-PER MESSAGE BROKER 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 tramadol AdvReac SEATING, Verified 04/25/21 07:38 AGITIATION, INSOMNIA, CONSTIPtion, jittery unsteady Ethanol Allergy Intermediate HEART RACES Uncoded 04/25/21 07:38 PROPULFID Allergy Intermediate STOMACH Uncoded 04/25/21 07:38 PAIN AND WEAKNESS COWS MILK Allergy Unknown ALLERGY Uncoded 04/25/21 07:38 TESTED Home Medications Medication Instructions Recorded Confirmed Type albuterol sulfate 90 mcg/actuation 1 - 2 inh INHALATION QID PRN 05/29/20 04/25/21 History aerosol inhaler amitriptyline 25 mg tablet 25 mg PO BID 05/29/20 04/25/21 History ascorbic acid (vitamin C) 500 mg 500 mg PO BID 05/29/20 04/25/21 History tablet (Vitamin C) budesonide-formoterol HFA 160 2 puff INHALATION BID 05/29/20 04/25/21 History mcg-4.5 mcg/actuation aerosol inhaler (Symbicort) cholecalciferol (vitamin D3) 50 50 mcg PO QAM 05/29/20 04/25/21 History mcg (2,000 unit) tablet (Vitamin D3) clopidogrel 75 mg tablet (Plavix) 75 mg PO QAM 05/29/20 04/25/21 History cyanocobalamin (vitamin B-12) 1,000 mcg PO QAM 05/29/20 04/25/21 History 1,000 mcg tablet empagliflozin 25 mg tablet 25 mg PO QAM 05/29/20 04/25/21 History (Jardiance) epinephrine 0.3 mg/0.3 mL 0.3 mg IM Q3H PRN 05/29/20 04/25/21 History injection, auto-injector esomeprazole magnesium 20 mg 20 mg PO BID 05/29/20 04/25/21 History capsule,delayed release (Nexium) ferrous sulfate 325 mg (65 mg 325 mg PO BID 05/29/20 04/25/21 History iron) tablet (iron) fluticasone propionate 50 2 spray INTRANASAL UD 05/29/20 04/25/21 History mcg/actuation nasal spray,suspension (Flonase Allergy Relief) folic acid 400 mcg tablet 0.4 mg PO QAM 05/29/20 04/25/21 History furosemide 40 mg tablet (Lasix) 40 mg PO BID PRN 05/29/20 04/25/21 History lactase 3,000 unit chewable tablet 3,000 unit PO UD 05/29/20 04/25/21 History (Dairy Aid) loratadine 10 mg tablet 10 mg PO QAM 05/29/20 04/25/21 History melatonin 5 mg tablet 5 mg PO HS 05/29/20 04/25/21 History ixjazat-fzhhz-ekyzzp-qtldszt-tqzh-sfm 1 ml INTRANASAL HS 05/29/20 04/25/21 History chlor-pot chlorat nasal solution (Alkalol Nasal Wash) multivitamin 1 tab PO QAM 05/29/20 04/25/21 History nitroglycerin 0.4 mg sublingual 0.4 mg BUCCAL UD PRN 05/29/20 04/25/21 History tablet roflumilast 500 mcg tablet 500 mcg PO QAM 05/29/20 04/25/21 History (Daliresp) rosuvastatin 40 mg tablet 40 mg PO HS 05/29/20 04/25/21 History semaglutide (Ozempic) 1 mg SUBCUT WK 05/29/20 04/25/21 History sertraline 100 mg tablet 150 mg PO QAM 05/29/20 04/25/21 History tiotropium bromide 18 mcg capsule 1 cap INHALATION QPM 05/29/20 04/25/21 History with inhalation device (Spiriva with HandiHaler) triamcinolone acetonide 0.1 % 1 applic TOPICAL BID PRN 05/29/20 04/25/21 History topical cream Albuteral Nebulizer 1 inh INHALATION DAILY PRN 03/29/21 04/25/21 History Pyridoxine Otc 1 tab PO QAM 03/29/21 04/25/21 History acetaminophen 325 mg tablet 975 mg PO QID PRN 03/29/21 04/25/21 History (Tylenol) aspirin 81 mg tablet,delayed 81 mg PO QAM 03/29/21 04/25/21 History release carvedilol 3.125 mg tablet 3.125 mg PO BID 03/29/21 04/25/21 History clotrimazole 1 % topical cream 1 applic TOPICAL BID 03/29/21 04/25/21 History miconazole nitrate 2 % topical 1 applic TOPICAL BID 03/29/21 04/25/21 History cream Patient History Medical History (Updated 04/25/21 @ 17:43 by Tammy Muñiz PA-C) A-fib Post op cath in 2014- Amio> SR per cardio records (no AC at this time) F/U DR FATIMAH DOMINGUEZ Abdominal aortic aneurysm No documentation per cardio records Anxiety and depression Asthma LAST USED RESCUE INHALER "ITS BEEN A WHILE". On 3 liters O2 with activity - breathing stable Barretts esophagus CAD (coronary artery disease) s/p CABG x 4 2013. Most recent cardiac cath 2016 showed patent grafts, 30% lesions in LM and LAD, proximally occluded LCx, chronic total occlusion of RCA. Carotid stenosis Chronic obstructive pulmonary disease 3L O2 HS and PRN SOB Diabetes mellitus, type 2 Emphysema lung Stage 3 with chronic partially collapsed lung (since 2013) GERD (gastroesophageal reflux disease) Hyperlipidemia Hypertension Lactose intolerance Liver mass BENIGN Myocardial Infarction 1994 On home oxygen therapy 3L AT HS AND PRN SOB Osteoarthritis Peripheral neuropathy Bilateral feet Restless leg syndrome Schatzki's ring Sleep apnea CPAP WITH O2 Thyroid nodule Under observation Transient ischemic attack (TIA) MULTIPLE TIMES (LAST EPISODE BEFORE 2013) STILL HAS PROBLEMS WITH MEMORY PROBLEMS (SHORT TERM MEMORY) On Plavix Surgical History H/O angioplasty [place] 1994 History of appendectomy History of arthroscopy RT /LEFT SHOULDER History of cardiac cath MULTIPLE TIMES/NO STENTS PLACED (LAST CATH DONE/[facility] 2016) History of carpal tunnel release History of cataract surgery RT/LEFT History of cholecystectomy History of colonoscopy History of coronary artery bypass graft 2013>4 VESSELS REPAIRED History of endoscopic sinus surgery History of esophagogastroduodenoscopy (EGD) History of eye surgery FOR DETACHED RETINA-01/2021 History of tonsillectomy History of tooth extraction Hx of elbow surgery RADIAL HEAD/BONE REMOVAL LEFT SIDE Family History Mother Family history of diabetes mellitus Social History Smoking Status: Former smoker Smoking End Date: QUIT 2017; Second Hand Exposure: No; Do You Dip or Chew Tobacco: No; Hx Alcohol Use: No Hx Substance Use: No Preferred Language: Kosovan Communication Ability: Effective Hog Operator Required: No Beliefs That Will Affect Care: None Current Living Situation: Spouse current occupational status: disabled Other Information That Helps Us Care for You: No Feels Safe at Home: Yes Safety Concerns: Feels Safe At This Time Assistive Devices: Denture - Upper, Denture - Lower and Oxygen - Continuous Review of Systems Review of Systems: REVIEW OF SYSTEMS General/Constitutional: Denies fever/chills, fatigue, weakness ENT: + mild throat irritation (tea is helping); Denies visual changes, nasal drainage, hearing loss, trouble swallowing Cardiovascular: Denies chest pain, palpitations, edema Respiratory: Denies cough, sputum, SOB, wheezing, orthopnea GI: Denies nausea, vomiting, abdominal pain, constipation, diarrhea, melena/hematochezia : Denies dysuria, frequency, hematuria Musculoskeletal: Denies joint/muscle aches, weakness, swelling Neurologic: Denies dizziness/lightheadedness, numbness/tingling, weakness Hematologic/Lymphatic: Denies bleeding/clotting abnormalities Skin: Denies rash, itch, new skin changes, easy bruising Physical Exam Physical Exam: PHYSICAL EXAM General Appearance: WDWN in NAD who is A&O x 3 HEENT: Head is normocephalic/atraumatic; EOMI; PERRLA; Hearing grossly intact; Mucous membranes moist; Pharynx negative for exudate/lesions Neck: Supple; Trachea midline; Neg JVD; Neg lymphadenopathy Heart: RRR Lungs: CTA in all lung reyes bilaterally but diminished at bases; Respirations unlabored; Neg accessory muscle use Abdomen: Soft, non-tender, non-distended; Positive BS x 4 quadrants; Neg organomegaly Extremities: L shoulder in sling with drain present; Capillary refill < 2 seconds; Neg cyanosis or edema Neurological: Speech clear; Gross motor/sensory function intact; Neg focal neuro logic deficits Psychiatric: Appropriate mood/affect Skin: Normal Color; Warm/Dry; Neg rashes, ecchymosis, lacerations/ulcerations Results & Data Results & Data ([facility]) Vital Signs (Past 12 Hours) Vital Signs Temp Pulse Pulse Resp BP Pulse Ox 04/25/21 17:00 77 18 107/64 96 04/25/21 14:45 36.9 C 74 17 97/56 L 96 04/25/21 14:35 37.2 C 74 20 96/52 L 95 04/25/21 14:25 83 17 91/55 L 94 04/25/21 14:15 74 15 101/56 L 96 04/25/21 14:05 76 22 103/59 L 95 04/25/21 13:55 74 21 101/60 96 04/25/21 13:46 37 C 76 16 119/66 97 04/25/21 07:20 36.6 C 69 20 117/69 98 PG Care Time/CCT Total # of Minutes Spent Total Time Spent with Patient: Total time spent is greater than 50% in coordination of care (as documented) at patient's floor/unit and/or counseling patient: Coding Level of Care Code 40615 Inpt Consult Level 3 Diagnoses Primary osteoarthritis, left shoulder M19.012 A-fib I48.91 Diabetes mellitus, type 2 E11.9 Sleep apnea G47.30 Hypertension I10 Hyperlipidemia E78.5 GERD (gastroesophageal reflux disease) K21.9 Chronic obstructive pulmonary disease J44.9 CAD (coronary artery disease) I25.10
[2021-04-25] MEDS: ACETAMINOPHEN 500 MG TAB PO SCH ×2 (17:59→21:13)
[2021-04-25] MEDS: ceFAZolin 2000MG 2,000 MG/15 ML SYR IV SCH (18:00)
[2021-04-25] MEDS: INSULIN ASPART 100 UNITS/ML 3 ML PEN SC SCH ×2 (18:05→21:33)
[2021-04-25] MEDS: SODIUM CHLORIDE 0.9% 1000ML 1,000 ML IV SCH (18:14)
[2021-04-25] MEDS ORDERED: [UNRECOGNIZED DRUG - OTHER] INTNAS SCH (21:00)
[2021-04-25] MEDS ORDERED: UMECLIDINIUM BROMIDE 62.5MCG/BLISTER 7 PUFFS/INHALER INH SCH (21:00)
[2021-04-25] MEDS ORDERED: SENNA 8.6 MG TAB PO SCH (21:00)
[2021-04-25] MEDS ORDERED: ROSUVASTATIN CALCIUM 20 MG TAB PO SCH (21:00)
[2021-04-25] MEDS: carvediloL 3.125 MG TAB PO SCH (21:09)
[2021-04-25] MEDS: FERROUS SULFATE 325 MG TAB PO SCH (21:10)
[2021-04-25] MEDS: PANTOprazole 40 MG TAB PO SCH (21:11)
[2021-04-25] MEDS: ASCORBIC ACID 500 MG TAB PO SCH (21:12)
[2021-04-25] MEDS: AMITRIPTYLINE HCL 25 MG TAB PO SCH (21:12)
[2021-04-25] MEDS: DOCUSATE SODIUM 100 MG CAP PO SCH (21:12)
[2021-04-25] MEDS: CLOTRIMAZOLE 1% CR 15 GM TUBE TOP SCH (21:32)
[2021-04-26] MEDS: ceFAZolin 2000MG 2,000 MG/15 ML SYR IV SCH (01:50)
[2021-04-26] MEDS: ACETAMINOPHEN 500 MG TAB PO SCH ×2 (05:04→15:36)
[2021-04-26] MEDS: SODIUM CHLORIDE 0.9% 1000ML 1,000 ML IV SCH (05:19)
[2021-04-26 06:00] LABS: Basophils # (auto) 0.02 K/uL (0-0.2); Basophils % (auto) 0.2 %; Eosinophils # (auto) 0.07 K/uL (0-0.5); Eosinophils % (auto) 0.8 %; Hematocrit (blood only) 37.5 % (42-52); Hemoglobin 12.6 g/dL (14.0-18.0); Immature Granulocytes # (auto) 0.02 K/uL (0.00-0.02); Immature Granulocytes % (auto) 0.2 %; Lymphocytes # (auto) 3.94 K/uL (1.2-3.4); Mean Corpuscular Hemoglobin 30.7 pg (25-34); Mean Corpuscular Hgb Conc 33.6 g/dL (32-36); Mean Corpuscular Volume 91.2 fL (80-100); Mean Platelet Volume 8.9 fL (7.4-10.4); Monocytes # (auto) 0.63 K/uL (0.11-0.59); Neutrophils # (auto) 4.27 K/uL (1.4-6.5); Neutrophils % (auto) 47.8 %; Platelet Count 138 K/uL (130-400); RDW Coefficient of Variation 13.7 % (11.5-14.5); RDW Standard Deviation 45.6 fL (36.4-46.3); Red Blood Count 4.11 M/uL (4.7-6.1); White Blood Count 8.95 K/uL (4.8-10.8)
[2021-04-26 06:31] LABS: BUN Creatinine Ratio 12.6 (10-20); Calcium 8.1 mg/dl (8.5-10.1); Creatinine Clr Calc Pharmacy 92.3 ml/min; Est GFR (Non-African American) 91.4 ml/min; Potassium 3.9 mmol/L (3.5-5.1)
--- NOTE | 2021-04-26 08:47 | Hospitalist Progress Note ---
Date of Service April 26, 2021 Assessment & Plan (1) CAD (coronary artery disease): Plan: - H/O MA and CABG - currently stable; no recent chest pain issues or angina - Continue ASA 81 mg daily; Plavix 75 mg daily; Coreg 3.125 mg BID; Rosuvastatin 40 mg HS (2) Chronic obstructive pulmonary disease: Plan: - STABLE - no recent exacerbations and no wheezing/bronchospasm on assessment; utilizes supplemental O2 on exertion (3L) and at night sometimes instead of CPAP - Albuteral PRN; Continue home inhaler regimen (3) Diabetes mellitus, type 2: Plan: - Hold home regimen and appreciate glycemic management - Continue amitriptyline 25 mg BID for diabetic neuropathy (4) Hypertension: Plan: - STABLE - Some BPs in 90s systolic but similar readings on previous admission - likely has low normal BP at baseline; patient is A&O and no dizziness - Continue home regimen (5) A-fib: Plan: - Appears this is a remote history post-operatively in the past; not requiring AC - Examines in NSR currently - no palpitations/flutters, dizziness, or issues (6) Sleep apnea: Plan: - Utilizes CPAP at home and sometimes just 3 L NC - patient prefers to utilize supplemental O2 while hospitalized - Can order CPAP if he would change his mind (7) Hyperlipidemia: Plan: - Continue statin therapy (8) GERD (gastroesophageal reflux disease): Plan: - Continue Protonix 40 mg BID as interchange (9) Primary osteoarthritis, left shoulder: Plan: - S/P Total Shoulder Arthroplasty on 25 April - Pain management, bowel regimen, DVT prophylaxis, PT/OT, surgical management per primary team - Labs and vitals remain stable at this time Disposition: - Medically stable at this time - Hospitalist team will continue to follow Admission and Anticipated Discharge Date Admission Date: April 25, 2021 Subjective Pt doing well this AM. States pain started to return around 0630 but is tolerable and pain regimen is working. Some mild numbness in the L hand but motor function intact. Review of Systems Review of Systems: REVIEW OF SYSTEMS General/Constitutional: Denies fever/chills, fatigue, weakness ENT: Denies visual changes, nasal drainage, hearing loss, trouble swallowing Cardiovascular: Denies chest pain, palpitations, edema Respiratory: Denies cough, sputum, SOB, wheezing, orthopnea GI: Denies nausea, vomiting, abdominal pain, constipation, diarrhea : Denies dysuria, frequency, hematuria Musculoskeletal: + L shoulder pain (tolerable); Denies other joint/muscle aches, weakness, swelling Neurologic: +mild numbness in L arm/hand likely residual from nerve block; Denies dizziness/lightheadedness weakness Hematologic/Lymphatic: Denies bleeding/clotting abnormalities Skin: Denies rash, itch, new skin changes, easy bruising Physical Exam Physical Exam: PHYSICAL EXAM General Appearance: WDWN in NAD who is A&O x 3 HEENT: Head is normocephalic/atraumatic; Hearing grossly intact; Mucous membranes moist Neck: Supple; Trachea midline; Neg JVD Heart: RRR no M/G/R Lungs: CTA in all lung reyes bilaterally but diminished at bases; Respirations unlabored; Neg accessory muscle use Abdomen: Soft, non-tender, non-distended; Positive BS x 4 quadrants Extremities: L shoulder in sling with drain present; Capillary refill < 2 seconds; Neg cyanosis or edema; L hand/fingers equal temperature Neurological: Speech clear; Gross motor/sensory function intact; Neg focal neurologic deficits Psychiatric: Appropriate mood/affect Skin: Normal Color; Warm/Dry; Neg rashes, ecchymosis, lacerations/ulcerations Results & Data Results & Data ([facility]) Vital Signs (Past 12 Hours) Vital Signs Temp Pulse Resp BP Pulse Ox 04/26/21 07:50 36.9 C 60 16 109/58 L 98 04/26/21 03:10 36.9 C 69 16 94/57 L 97 04/25/21 23:09 36.8 C 74 16 100/59 L 98 04/25/21 21:07 85 104/62 96 PG Care Time/CCT Total # of Minutes Spent Total Time Spent with Patient: Total time spent is greater than 50% in coordination of care (as documented) at patient's floor/unit and/or counseling patient: Coding Level of Care Code 13015 Inpt Consult Level 2 Diagnoses CAD (coronary artery disease) I25.10 Chronic obstructive pulmonary disease J44.9 Diabetes mellitus, type 2 E11.9 Hypertension I10 A-fib I48.91 Sleep apnea G47.30 Hyperlipidemia E78.5 GERD (gastroesophageal reflux disease) K21.9 Primary osteoarthritis, left shoulder M19.012
[2021-04-26] MEDS: ASCORBIC ACID 500 MG TAB PO SCH (08:50)
[2021-04-26] MEDS: DOCUSATE SODIUM 100 MG CAP PO SCH (08:53)
[2021-04-26] MEDS: AMITRIPTYLINE HCL 25 MG TAB PO SCH (08:53)
[2021-04-26] MEDS: carvediloL 3.125 MG TAB PO SCH (08:59)
[2021-04-26] MEDS: CLOTRIMAZOLE 1% CR 15 GM TUBE TOP SCH (08:59)
[2021-04-26] MEDS ORDERED: FLUTICASONE PROPIONATE NA SPR 16 GM BTL SCH (09:00)
[2021-04-26] MEDS ORDERED: CLOPIDOGREL BISULFATE 75 MG TAB PO SCH (09:00)
[2021-04-26] MEDS ORDERED: CHOLECALCIFEROL 1,000 UNITS 25 MCG TAB PO SCH (09:00)
[2021-04-26] MEDS ORDERED: ASPIRIN 81 MG ECTAB PO SCH (09:00)
[2021-04-26] MEDS ORDERED: FLUTICASONE/VILANTEROL 100/25MCG 14 PUFFS/INHALER INH SCH (09:00)
[2021-04-26] MEDS ORDERED: LORATADINE 10 MG TAB PO SCH (09:00)
[2021-04-26] MEDS ORDERED: FOLIC ACID 400 MCG TAB PO SCH (09:00)
[2021-04-26] MEDS ORDERED: PYRIDOXINE HCL 50 MG TAB PO SCH (09:00)
[2021-04-26] MEDS ORDERED: ROFLUMILAST 500 MCG TAB PO SCH (09:00)
[2021-04-26] MEDS ORDERED: MULTIVITAMIN TAB PO SCH ×2 (09:00)
[2021-04-26] MEDS ORDERED: CYANOCOBALAMIN 500 MCG TABLET (VITAMIN B-12) PO SCH (09:00)
[2021-04-26] MEDS ORDERED: SERTRALINE HCL 50 MG TABLET PO SCH (09:00)
[2021-04-26] MEDS: FERROUS SULFATE 325 MG TAB PO SCH (09:01)
[2021-04-26] MEDS: PANTOprazole 40 MG TAB PO SCH (09:01)
[2021-04-26] MEDS: INSULIN ASPART 100 UNITS/ML 3 ML PEN SC SCH ×2 (09:05→13:30)
[2021-04-26] MEDS: oxyCODONE HCL IR 5 MG TAB (IMMEDIATE RELEASE) PO PRN ×2 (09:15→15:34)
--- NOTE | 2021-04-26 11:16 | Orthopedic Progress Note ---
Date of Service April 26, 2021 Assessment & Plan (1) Primary osteoarthritis, left shoulder: Plan: Postop day 1 status post left total shoulder arthroplasty PT/OT protocols. Patient progressing well with both. It was noted that the patient was not wearing his sling in the room. We discussed using the sling at all times for now until designated otherwise by Dr. Washington. We went over not using his shoulder actively and that he could use his right arm to move the left arm passively. Patient understands and states he will definitely wear his sling regularly. DVT prophylaxis-aspirin daily, SCDs while in the hospital Pain management as written. DC planning-patient is planning for home health services upon discharge.Plan for discharge to home today. Admission and Anticipated Discharge Date Admission Date: April 25, 2021 Supervising Physician Co-Signing Physician Notes Patient seen and examined. Agree with IVAN Quinteros's note as above. Postoperative day 1 status post left total shoulder. Doing well. Pain controlled. Plan for discharge home today. Subjective Postop day 1 Patient currently sitting at bedside in his chair. Just finishing up with his occupational therapy. States he feels well today. Pain is controlled. Denies shortness of breath, chest pain, lightheadedness he is hoping to go home today. Physical Exam Physical Exam: Dressings are clean, dry, and intact. Mild drainage from his Hemovac. He has good range of motion of the left elbow, wrist, and fingers. He has some mild decrease sensation in the thumb but states is getting better. No other noted decrease sensation of the left upper extremity. Cap refills less than 2 seconds. Results & Data ([facility]) Vital Signs (Past 12 Hours) Vital Signs Temp Pulse Resp BP Pulse Ox 04/26/21 07:50 36.9 C 60 16 109/58 L 98 04/26/21 03:10 36.9 C 69 16 94/57 L 97 Laboratory Results Laboratory Results WBC 8.95 K/uL (4.8-10.8) 04/26/21 05:32 RBC 4.11 M/uL (4.7-6.1) L 04/26/21 05:32 Hgb 12.6 g/dL (14.0-18.0) L 04/26/21 05:32 Hct 37.5 % (42-52) L 04/26/21 05:32 MCV 91.2 fL (80-100) 04/26/21 05:32 MCH 30.7 pg (25-34) 04/26/21 05:32 MCHC 33.6 g/dL (32-36) 04/26/21 05:32 RDW Std Deviation 45.6 fL (36.4-46.3) 04/26/21 05:32 RDW Coeff of Lore 13.7 % (11.5-14.5) 04/26/21 05:32 Plt Count 138 K/uL (130-400) 04/26/21 05:32 MPV 8.9 fL (7.4-10.4) 04/26/21 05:32 Immature Gran % (Auto) 0.2 % 04/26/21 05:32 Neut % (Auto) 47.8 % 04/26/21 05:32 Lymph % (Auto) 44.0 % 04/26/21 05:32 [place] % (Auto) 7.0 % 04/26/21 05:32 Eos % (Auto) 0.8 % 04/26/21 05:32 Baso % (Auto) 0.2 % 04/26/21 05:32 Neut # (Auto) 4.27 K/uL (1.4-6.5) 04/26/21 05:32 Lymph # (Auto) 3.94 K/uL (1.2-3.4) H 04/26/21 05:32 [place] # (Auto) 0.63 K/uL (0.11-0.59) H 04/26/21 05:32 Eos # (Auto) 0.07 K/uL (0-0.5) 04/26/21 05:32 Baso # (Auto) 0.02 K/uL (0-0.2) 04/26/21 05:32 Immature Gran # (Auto) 0.02 K/uL (0.00-0.02) 04/26/21 05:32 Sodium 140 mmol/L (136-145) 04/26/21 05:32 Potassium 3.9 mmol/L (3.5-5.1) 04/26/21 05:32 Chloride 107 mmol/L (98-107) 04/26/21 05:32 Carbon Dioxide 29 mmol/L (21-32) 04/26/21 05:32 Anion Gap 4.0 (3-11) 04/26/21 05:32 BUN 11 mg/dl (7-18) 04/26/21 05:32 Creatinine 0.85 mg/dl (0.6-1.4) 04/26/21 05:32 Est Cr Clr Drug Dosing 92.3 ml/min 04/26/21 05:32 Est GFR ( Amer) 106.0 ml/min 04/26/21 05:32 Est GFR (Non-Af Amer) 91.4 ml/min 04/26/21 05:32 BUN/Creatinine Ratio 12.6 (10-20) 04/26/21 05:32 Glucose 109 mg/dl (70-99) H 04/26/21 05:32 POC Glucose 112 mg/dl (70-99) H 04/26/21 08:11 Calcium 8.1 mg/dl (8.5-10.1) L 04/26/21 05:32 COVID-19 Eval Order Covid19 at [facility] 04/25/21 07:32 SARS-CoV-2 (PCR) NEGATIVE (Negative) 04/25/21 07:32 Impressions Shoulder X-Ray 04/25/21 13:55 XR shoulder LT min 2V routine HISTORY: 65 years-old Male Post shoulder surgery left shoulder total joint arthroplasty COMPARISON: Chest radiographs 04/12/2021 TECHNIQUE: 2 views of the left shoulder FINDINGS: Left shoulder arthroplasty. Overlying skin dari are present along with expected postoperative soft tissue swelling with surgical drainage catheter. No acute fracture or unexpected opaque foreign body. No malalignment. Moderate AC joint degeneration. IMPRESSION: Left shoulder arthroplasty with expected postoperative changes. ACT 112: Negative or not required by law. The above report was generated using voice recognition software. It may contain grammatical, syntax or spelling errors. Electronically signed by: Maciej Govea M.D. 04/25/2021 2:29 PM
--- NOTE | 2021-04-27 18:48 | Discharge Summary ---
Date of Service April 27, 2021 Admission HPI Per Admitting Provider 65 year old male with PMHx significant for HTH, high cholesterol, emphysema, hx of [place], CAD s/p CABG, DM2, afib, RUTHANN, AAA, TIA, and GERD who presents with ongoing left shoulder pain. Had arthroscopy last year and is having continued pain interfering with his daily activities. Has failed conservative measures including therapy and injections. He would like to proceed with arthroplasty. Patient denies headaches, sweats, fevers, chills, double vision, blurred vision, cough, sore throat, dysphagia, chest pain, sob, wheezing, n/v/d/c, numbness, tingling, fatigue, urinary symptoms, mood disorders. ROS positive for left shoulder pain and stiffness. Admission Exam Per Admitting Provider Constitutional: well developed and well nourished; no acute distress Eyes: PERRL, conjunctivae normal, anicteric sclerae ENMT: external ear and nose normal, oropharynx normal Neck: trachea midline, no thyromegaly Respiratory: normal respiratory effort, lungs clear to auscultation (lung sounds mildly diminished) Cardiovascular: RRR, no murmur, no edema Musculoskeletal: Left shoulder: Diffuse tenderness. Positive Impingement signs. Painful ROM in all directions. ER to 40 degrees, FF to 80 degrees, abduction to 60 degrees. Normal strength. Skin: no rashes, warm and dry Neurologic: patellar DTR's 2+ bilat, sensation intact Psychiatric: A+Ox3, euthymic affect Principal Diagnosis Left shoulder osteoarthritis Discharge Exam Constitutional well developed and well nourished; no acute distress Eyes PERRL, conjunctivae normal, anicteric sclerae ENMT external ear and nose normal, oropharynx normal Neck trachea midline, no thyromegaly Respiratory normal respiratory effort, lungs clear to auscultation (lung sounds mildly diminished) Cardiovascular RRR, no murmur, no edema Skin no rashes, warm and dry Neurologic patellar DTR's 2+ bilat, sensation intact Psychiatric A+Ox3, euthymic affect Discharge Data Allergies Allergy/AdvReac Type Severity Reaction Status Date / Time codeine Allergy Intermediate HALLUCINATE Verified 04/25/21 07:38 S glipizide Allergy Intermediate "DROPS BSG Verified 04/25/21 07:38 TOO LOW" milk Allergy Intermediate Unknown Verified 04/26/21 08:42 pseudoephedrine Allergy Intermediate HEART RACES Verified 04/25/21 07:38 quinapril Allergy Intermediate DIZZINESS Verified 04/25/21 07:38 AND HEADACHES amoxicillin Allergy Mild N/V/D, Verified 04/25/21 07:38 HEADACHES, FEVER, TIREDNESS atorvastatin Allergy Mild LEG CRAMPS Verified 04/25/21 07:38 celecoxib Allergy Mild NAUSEA AND Verified 04/25/21 07:38 DIARRHEA clavulanic acid Allergy Mild N/V/D, Verified 04/25/21 07:38 HEADACHES, FEVER, TIREDNESS grape Allergy Mild ALLERGY Verified 04/25/21 07:38 TESTED guaifenesin Allergy Mild HEART RACES Verified 04/25/21 07:38 indomethacin Allergy Mild DIARRHEA Verified 04/25/21 07:38 AND TROUBLE SLEEPING niacin Allergy Mild CRAMPS, Verified 04/25/21 07:38 ITCHING TINGLING OF FACE AND NECK ramipril Allergy Mild LOW BLOOD Verified 04/25/21 07:38 PRESSURE AND DIFFICULT BREATHING metformin AdvReac Unknown NOT TO USE Verified 04/25/21 07:38 WITH OXYGEN-[employer] tramadol AdvReac SEATING, Verified 04/25/21 07:38 AGITIATION, INSOMNIA, CONSTIPtion, jittery unsteady Ethanol Allergy Intermediate HEART RACES Uncoded 04/25/21 07:38 PROPULFID Allergy Intermediate STOMACH Uncoded 04/25/21 07:38 PAIN AND WEAKNESS Consultations 04/23/21 11:55 Consult Hospitalist Routine Procedures Performed Operation Date: 04/25/21 09:25 Actual Procedures p Left Total Shoulder Arthroplasty, Capsular Release, Biceps Tenodesis, Manipulation Shoulder Under Anesthesia(Left) - Vito Washington MD Ordered Studies 04/25/21 05:00 US - OR guided needle placemen Routine Hospital Course (1) Primary osteoarthritis, left shoulder: Patient presented for same day admission following left total shoulder arthroplasty on 04/25/21. He tolerated procedure well. The Patient had an uneventful hospital course. Post-operatively, his activity was progressed and well tolerated. They participated in PT without complication. Labs remained stable- lowest hemoglobin recorded: 12.6. Dr. Taiwo Cooley of medical service was consulted for medical management during admission. Pain controlled on oral medications. Please refer to daily progress notes and PT notes for complete details. After exam on 04/26/21, patient was felt to be stable for discharge home with home health PT. Patient will f/u in the office in about 2 weeks for further evaluation including x-rays and incision check, sooner if having any issues or concerns. Postop day 1 status post left total shoulder arthroplasty PT/OT protocols. Patient progressing well with both. It was noted that the patient was not wearing his sling in the room. We discussed using the sling at all times for now until designated otherwise by Dr. Washington. We went over not using his shoulder actively and that he could use his right arm to move the left arm passively. Patient understands and states he will definitely wear his sling regularly. DVT prophylaxis-aspirin daily, SCDs while in the hospital Pain management as written. DC planning-patient is planning for home health services upon discharge.Plan for discharge to home today. Total Time Total Time Spent Total Time Spent (In Minutes): 20 Discharge Plan Discharge Items Patient Disposition: Home - Home Health Services Reason For Visit: Left Shoulder Osteoarthritis, Adhesive Capsulitis Discharge Diagnosis: Left shoulder osteoarthritis, adhesive capsulitis Activity: Per Instructions section Weightbearing: Left non-weightbearing Non-emergency contact: Surgeon Call non-emergency contact if: you have any medication questions, your pain is not controlled, your pain is concerning for you, you have a fever, your temperature is above 101, your wound has increased redness and your wound has increased drainage Follow-up/Referrals: Hank Ulrich MD [Primary Care Provider] - Diet: Heart Healthy Addtl Attending Provider Instructions: USE YOUR SLING REGULARLY! YOU MAY LOOSEN TO BATHE AND CHANGE CLOTHES. NO ACTIVE RANGE OF MOTION OF THE RIGHT SHOULDER. ACTIVITY RECOMMENDATIONS: SELF CARE INSTRUCTIONS AFTER TOTAL SHOULDER ARTHROPLASTY A. You may do daily exercises as taught in physical therapy while in hospital. No lifting with the operative arm. Please schedule your outpatient physical therapy appointment to begin within 2-3 days after leaving the hospital. Specific restrictions will be written on your physical therapy prescription that is provided to you. B. You are to wear your sling/immobilizer at all times EXCEPT when performing your daily exercises, participating in physical therapy and for hygiene pur poses. C. You may perform dry, daily dressing changes. Please keep your incision covered. You may shower 48 hours after surgery. Do not apply soap or any ointment/lotions directly over incision. Do not soak incision in bath tub/swimming pool. D. You may use ice as needed to operative shoulder. SPECIAL CARE INSTRUCTIONS: MEDICATION INSTRUCTIONS: *It is recommended you take Aspirin 325mg daily for four weeks post-op. VERY IMPORTANT TO READ AND REVIEW A. There are a few signs you need to watch for after you are home. Call [facility] at [phone] if you experience any of the followin. Increased severe shoulder pain. Some pain is expected especially when you exercise. 2. Increased swelling in you shoulder or arm; pain or swelling in either upper extremity. 3. Any fluid drainage from the incision. 4. Shortness of breath or chest pain. B. Please call [facility] at [phone] if you have any questions or concerns about your operation or recovery. C. Call your physician if: 1. Temperature is greater than 101 degrees (F). 2. Pain is not relieved by prescribed pain medications. 3. Increase drainage or redness from incision. 4. Unanswered questions or concerns. FOLLOW UP VISIT: Please call [facility] at [phone] to schedule a follow up appointment with Dr. Washington or his PA in 12-14 days from your surgery date. Stand-Alone Forms: My [facility] [employer], Opioid Pain Management, Work/School Release, Smoking Cessation Medications and DC Order Prescriptions: New acetaminophen [Tylenol Extra Strength] 500 mg Tablet 1,000 mg PO Q8 14 Days Qty: 84 RF: 0 polyethylene glycol 3350 [Miralax] 17 gram powder in packet 17 g PO DAILY PRN (Reason: constipation) Qty: 5 RF: 0 oxycodone 5 mg Tablet 5 mg PO Q4H MDD 6 PRN (Reason: pain) Qty: 30 RF: 0 Continued multivitamin Tablet 1 tab PO QAM RF: 0 furosemide [Lasix] 40 mg Tablet 40 mg PO BID PRN (Reason: SWELLING/WEIGHT GAIN) RF: 0 sertraline 100 mg Tablet 150 mg PO QAM RF: 0 cyanocobalamin (vitamin B-12) 1,000 mcg Tablet 1,000 mcg PO QAM RF: 0 clopidogrel [Plavix] 75 mg Tablet 75 mg PO QAM RF: 0 folic acid 400 mcg Tablet 0.4 mg PO QAM RF: 0 amitriptyline 25 mg Tablet 25 mg PO BID RF: 0 ascorbic acid (vitamin C) [Vitamin C] 500 mg Tablet 500 mg PO BID RF: 0 ferrous sulfate [iron] 325 mg (65 mg iron) Tablet 325 mg PO BID RF: 0 epinephrine 0.3 mg/0.3 mL Auto-Injector 0.3 mg IM Q3H PRN (Reason: Allergic Reaction) RF: 0 albuterol sulfate 90 mcg/actuation Hfa Aerosol Inhaler 1 - 2 inh INHALATION QID PRN (Reason: SHORT OF BREATH) RF: 0 fluticasone propionate [Flonase Allergy Relief] 50 mcg/actuation [place],Suspension 2 spray INTRANASAL UD RF: 0 loratadine 10 mg Tablet 10 mg PO QAM RF: 0 esomeprazole magnesium [Nexium] 20 mg Capsule,Delayed Release(Dr/Ec) 20 mg PO BID RF: 0 Dairy Aid 3,000 unit Tablet,Chewable 3,000 unit PO UD RF: 0 rosuvastatin 40 mg Tablet 40 mg PO HS RF: 0 Spiriva with HandiHaler 18 mcg Capsule, W/Inhalation Device 1 cap INHALATION QPM RF: 0 budesonide-formoterol [Symbicort] 160-4.5 mcg/actuation Hfa Aerosol Inhaler 2 puff INHALATION BID RF: 0 melatonin 5 mg Tablet 5 mg PO HS RF: 0 cholecalciferol (vitamin D3) [Vitamin D3] 50 mcg (2,000 unit) Tablet 50 mcg PO QAM RF: 0 Daliresp 500 mcg Tablet 500 mcg PO QAM RF: 0 Jardiance 25 mg Tablet 25 mg PO QAM RF: 0 Ozempic 0.25 mg or 0.5 mg(2 mg/1.5 mL) Pen Injector 1 mg SUBCUT WK RF: 0 Alkalol Nasal Wash Solution 1 ml INTRANASAL HS RF: 0 triamcinolone acetonide 0.1 % Cream 1 applic TOPICAL BID PRN (Reason: RASH ON LEGS/ARMS) RF: 0 nitroglycerin 0.4 mg Tablet, Sublingual 0.4 mg buccal UD PRN (Reason: Chest Pain) RF: 0 carvedilol 3.125 mg Tablet 3.125 mg PO BID RF: 0 Albuteral Nebulizer 1 inh inhalation DAILY PRN (Reason: Wheezing) RF: 0 miconazole nitrate 2 % Cream 1 applic TOPICAL BID RF: 0 aspirin 81 mg Tablet,Delayed Release (Dr/Ec) 81 mg PO QAM RF: 0 clotrimazole 1 % Cream 1 applic TOPICAL BID RF: 0 Pyridoxine Otc 1 tab PO QAM RF: 0 Discontinued acetaminophen [Tylenol] 325 mg Tablet 975 mg PO QID PRN (Reason: Pain) RF: 0 Discharge Orders: Discharge Order (Routine); Ordered 04/26/21 Ordered By: Rudolph Espino/Other Patient Handouts: DVT Post Op Prevention Admission Data Admit Date/Time: 04/25/21 13:55 Attending Provider: Vito Washington Admit Provider: Vito Washington Primary Care Provider: Hank Ulrich Other Providers: Taiwo Cooley Other Interventions: Discharge Summary Assessment (RN) Last Done: 04/26/21 15:50
== END 2021-04-26 15:52 | disposition home health service (06) | DRG 483 ==
LOC: ASU 06:55 → 3E 13:55